=== PATIENT | female | born 1970 | race Caucasian/White ===

== ENCOUNTER 2021-05-04 18:42 | Outpatient (CLI) | payer OTHER ==
[2021-05-04 20:30] VITALS: BP 120/82
[2021-05-04] MEDS ORDERED: LORazepam 2 MG TABLET PO ONE (21:15)
[2021-05-04 22:09] VITALS: BP 120/82
[2021-05-04] MEDS: TraZODone HCL 150 MG TABLET PO SCH (22:47)
[2021-05-04] MEDS: TOPIRAMATE 100 MG TABLET PO SCH (22:50)
[2021-05-05 01:36] LABS: GLUCOMETER DEV NAME(LOC) POC.BV
[2021-05-05 08:22] VITALS: BP 96/66
[2021-05-05] MEDS: PREGABALIN 50 MG CAPSULE PO SCH ×5 (08:59→21:38)
[2021-05-05] MEDS: LORazepam 1 MG TABLET PO PRN ×2 (09:04→16:49)
[2021-05-05] MEDS: LEVOTHYROXINE SODIUM 100 MCG TABLET PO SCH (09:41)
[2021-05-05] MEDS: ARIPiprazole 15 MG TABLET PO SCH (09:41)
[2021-05-05] MEDS: TOPIRAMATE 100 MG TABLET PO SCH ×2 (09:42→21:49)
[2021-05-05 15:07] LABS: BASOPHILS % (AUTO) 0.2 % (0.0-2.0); EOSINOPHILS % (AUTO) 0.6 % (1.0-6.0); HEMATOCRIT 43.3 % (36-46); HEMOGLOBIN 14.8 g/dL (12.0-16.0); LYMPHOCYTES # (AUTO) 2.2 K/uL (1.0-4.8); LYMPHOCYTES % (AUTO) 32.2 % (22.0-44.0); MEAN CORPUSCULAR HEMOGLOBIN 33.4 pg (26.0-34.0); MEAN CORPUSCULAR HGB CONC 34.1 G/dL (31.0-37.0); MEAN CORPUSCULAR VOLUME 98 fL (80-100); MONOCYTES # (AUTO) 0.6 K/uL (0.1-1.0); MONOCYTES % (AUTO) 8.1 % (2.0-9.0); NEUTROPHILS # (AUTO) 4.1 K/uL (1.8-7.7); NEUTROPHILS % (AUTO) 58.9 % (40.0-70.0); PLATELET COUNT (AUTO) 323 K/uL (150-450); RED BLOOD CELL COUNT(AUTO) 4.42 MIL/uL (4.00-5.20); RED CELL DISTRIBUTION WIDTH 13.8 % (11.5-14.5)
[2021-05-05 15:26] LABS: ANION GAP 7 mmol/L (8-16); CALCIUM, TOTAL 9.1 mg/dL (8.8-10.5); CARBON DIOXIDE 26 mmol/L (22-29); CHLORIDE 104 mmol/L (98-107); CREATININE 0.83 mg/dL (0.60-1.30); GLOMERULAR FILTR. RATE CALC > 60 mL/min (>60); GLUCOSE,RANDOM 98 mg/dL (70-110); POTASSIUM 3.9 mmol/L (3.5-5.1); SODIUM SERUM 137 mmol/L (136-145); UREA NITROGEN, BLOOD 8 mg/dL (7-18)
[2021-05-05 15:41] LABS: ALANINE AMINOTRANSFERASE 30 U/L (12-78); ALKALINE PHOSPHATASE 78 U/L (46-116); ASPARTATE AMINOTRANSFERASE 21 U/L (15-37); BILIRUBIN,TOTAL 0.8 mg/dL (0.1-1.0); FREE T4 (FREE THYROXINE) 1.67 ng/dL (0.76-1.46); THYROID STIMULATING HORMONE 0.42 uIU/mL (0.36-3.74); TOTAL PROTEIN, SERUM 7.1 g/dL (6.4-8.2)
[2021-05-05 15:42] LABS: ACETAMINOPHEN < 2 mcg/mL (10-30)
[2021-05-05 17:04] LABS: SALICYLATE < 2.8 mg/dL (2.8-20.0)
[2021-05-05 17:32] LABS: AMPHET/METH SCREEN,URINE NEGATIVE (NEGATIVE); BARBITURATE SCREEN, URINE NEGATIVE (NEGATIVE); BENZODIAZEPINES SCREEN,URINE NEGATIVE (NEGATIVE); CANNABINOID SCREEN,URINE POSITIVE (NEGATIVE); COCAINE SCREEN,URINE NEGATIVE (NEGATIVE); METHADONE SCREEN, URINE NEGATIVE (NEGATIVE); OPIATE SCREEN,URINE NEGATIVE (NEGATIVE)
[2021-05-05 17:39] LABS: PHENCYCLIDINE SCREEN,URINE NEGATIVE (NEGATIVE)
[2021-05-05] MEDS: TraZODone HCL 150 MG TABLET PO SCH (21:38)
[2021-05-05 21:54] VITALS: BP 106/68
[2021-05-06 08:41] VITALS: BP 98/66
[2021-05-06] MEDS: ARIPiprazole 15 MG TABLET PO SCH (09:01)
[2021-05-06] MEDS: LEVOTHYROXINE SODIUM 100 MCG TABLET PO SCH (09:01)
[2021-05-06] MEDS: PREGABALIN 50 MG CAPSULE PO SCH ×3 (09:02→17:00)
[2021-05-06] MEDS: TOPIRAMATE 100 MG TABLET PO SCH (09:02)
[2021-05-06] MEDS: LORazepam 1 MG TABLET PO PRN (09:10)
[2021-05-07] MEDS ORDERED: TRAZ-257 PO (02:18)
[2021-05-07] MEDS ORDERED: PREG50 PO (02:18)
[2021-05-07] MEDS ORDERED: LEVO100 PO (02:18)
[2021-05-07] MEDS ORDERED: TOPI100T37 PO ×2 (02:18)
[2021-05-07] MEDS ORDERED: ARIP15TA27 PO (02:18)
[2021-05-07] MEDS ORDERED: LEVO1TAB13 PO (02:18)
[2021-05-07] MEDS ORDERED: ativan PO (03:26)
[2021-05-08] MEDS ORDERED: LORA-1000 PO (12:31)
== END 2021-05-07 01:58 | disposition home or self-care (01) ==
LOC: CSU 18:42
PROVIDERS: ATTEND Psychiatry & Neurology Psychiatry
DX: F31.5 Bipolar disorder, current episode depressed, severe, with psychotic features (principal); F15.20 Other stimulant dependence, uncomplicated; F12.10 Cannabis abuse, uncomplicated; F31.4 Bipolar disorder, current episode depressed, severe, without psychotic features; F31.9 Bipolar disorder, unspecified
CPT/HCPCS: 36415; 80053; 80307; 84439; 84443; 85025; 87426; 90792; G0480 ×2; G0481

== ENCOUNTER 2021-05-06 00:29 | Inpatient (IN) | payer OTHER ==
[~2021-05-06] VITALS: Ht 175.3 cm; Wt 89.4 kg
[2021-05-07] MEDS ORDERED: PREG50 PO (02:18)
[2021-05-07] MEDS ORDERED: TOPI100T37 PO ×2 (02:18)
[2021-05-07] MEDS ORDERED: LEVO100 PO (02:18)
[2021-05-07] MEDS ORDERED: TRAZ-257 PO (02:18)
[2021-05-07] MEDS ORDERED: ARIP15TA27 PO (02:18)
[2021-05-07] MEDS ORDERED: LEVO1TAB13 PO (02:18)
[2021-05-07] MEDS ORDERED: ativan PO (03:26)
[2021-05-07] MEDS: HALOPERIDOL 5 MG TABLET PO PRN ×2 (03:54→08:48)
[2021-05-07] MEDS: LORazepam 1 MG TABLET PO PRN ×2 (03:54→08:32)
[2021-05-07 04:24] VITALS: BP 118/70
[2021-05-07] MEDS ORDERED: INFLUENZA VIRUS VACCINE QVS 2021-22 (6MO+)/PF 60 MCG/0.5 ML SYRINGE IM. ONE (04:45)
[2021-05-07 08:27] VITALS: BP 104/73
[2021-05-07] MEDS: TOPIRAMATE 100 MG TABLET PO SCH ×2 (12:04→20:17)
[2021-05-07] MEDS: ARIPiprazole 10 MG TABLET PO SCH (12:04)
[2021-05-07] MEDS ORDERED: NICOTINE 14 MG/24 HOUR PATCH TD PRN (15:15)
[2021-05-07] MEDS ORDERED: GuaiFENesin/D-METHORPHAN [SUGAR-FREE] 200-20MG/10 ML SYRUP UDCUP PO PRN (15:15)
[2021-05-07] MEDS ORDERED: MAG HYDROX/AL HYDROX/SIMETH ES 30 ML SUSPENSION UDCUP PO PRN (15:15)
[2021-05-07] MEDS ORDERED: CloNIDine HCL 0.1 MG TABLET PO PRN (15:15)
[2021-05-07] MEDS ORDERED: ALBUTEROL SULFATE HFA 90 MCG/PUFF 8 GM INHALER IH PRN (15:15)
[2021-05-07] MEDS ORDERED: DOCUSATE SODIUM 100 MG CAPSULE PO PRN (15:15)
[2021-05-07] MEDS ORDERED: ONDANSETRON HCL 4 MG TABLET PO PRN (15:15)
[2021-05-07] MEDS ORDERED: ACETAMINOPHEN 325 MG TABLET PO PRN (15:15)
[2021-05-07] MEDS ORDERED: MAGNESIUM HYDROXIDE SUSPENSION 30 ML UDCUP PO PRN (15:15)
[2021-05-07] MEDS ORDERED: LOPERAMIDE HCL 2 MG CAPSULE PO PRN (15:15)
[2021-05-07] MEDS ORDERED: PETROLATUM,WHITE 28 GM JELLY TP PRN (15:15)
[2021-05-07 15:41] LABS: GLUCOMETER DEV NAME(LOC) POC.BV
[2021-05-07 16:14] VITALS: BP 96/58
[2021-05-07 17:11] VITALS: BP 106/68
[2021-05-07] MEDS: IBUPROFEN 400 MG TABLET PO PRN (17:11)
[2021-05-07] MEDS: TraZODone HCL 100 MG TABLET PO SCH (20:17)
[2021-05-07] MEDS ORDERED: TOPIRAMATE 100 MG TABLET PO SCH (21:00)
[2021-05-07] MEDS ORDERED: GABAPENTIN 300 MG CAPSULE PO SCH (21:00)
[2021-05-08 02:08] VITALS: BP 110/68
[2021-05-08] MEDS: ZOLPIDEM TARTRATE 10 MG TABLET PO PRN ×2 (02:10→20:09)
[2021-05-08 05:03] VITALS: BP 132/91
[2021-05-08] MEDS: LORazepam 1 MG TABLET PO PRN ×2 (05:07→17:14)
[2021-05-08] MEDS: IBUPROFEN 400 MG TABLET PO PRN (05:08)
[2021-05-08] MEDS: HALOPERIDOL 5 MG TABLET PO PRN (05:08)
[2021-05-08] MEDS: LEVOTHYROXINE SODIUM 100 MCG TABLET PO SCH (06:25)
[2021-05-08 06:36] LABS: BASOPHILS % (AUTO) 0.3 % (0.0-2.0); EOSINOPHILS % (AUTO) 1.4 % (1.0-6.0); HEMATOCRIT 42.8 % (36-46); HEMOGLOBIN 14.8 g/dL (12.0-16.0); LYMPHOCYTES # (AUTO) 2.5 K/uL (1.0-4.8); LYMPHOCYTES % (AUTO) 33.8 % (22.0-44.0); MEAN CORPUSCULAR HEMOGLOBIN 33.8 pg (26.0-34.0); MEAN CORPUSCULAR HGB CONC 34.6 G/dL (31.0-37.0); MEAN CORPUSCULAR VOLUME 98 fL (80-100); MONOCYTES # (AUTO) 0.6 K/uL (0.1-1.0); MONOCYTES % (AUTO) 8.1 % (2.0-9.0); NEUTROPHILS # (AUTO) 4.3 K/uL (1.8-7.7); NEUTROPHILS % (AUTO) 56.4 % (40.0-70.0); PLATELET COUNT (AUTO) 303 K/uL (150-450); RED BLOOD CELL COUNT(AUTO) 4.38 MIL/uL (4.00-5.20); RED CELL DISTRIBUTION WIDTH 13.3 % (11.5-14.5)
[2021-05-08 07:01] LABS: ALANINE AMINOTRANSFERASE 28 U/L (12-78); ALKALINE PHOSPHATASE 79 U/L (46-116); ANION GAP 8 mmol/L (8-16); ASPARTATE AMINOTRANSFERASE 17 U/L (15-37); BILIRUBIN,TOTAL 0.7 mg/dL (0.1-1.0); CALCIUM, TOTAL 9.3 mg/dL (8.8-10.5); CARBON DIOXIDE 25 mmol/L (22-29); CHLORIDE 106 mmol/L (98-107); CHOL/HDL RATIO 4.6 (3.9-5.7); CHOLESTEROL 236 mg/dL (131-200); CREATININE 0.93 mg/dL (0.60-1.30); FREE T4 (FREE THYROXINE) 1.35 ng/dL (0.76-1.46); GLOMERULAR FILTR. RATE CALC > 60 mL/min (>60); GLUCOSE,RANDOM 101 mg/dL (70-110); HCG,QUANTITATIVE 1 mIU/mL (0-6); HDL CHOLESTEROL 51 mg/dL (40-60); LDL CHOL (CALC.) 166 mg/dL (0-130); POTASSIUM 3.8 mmol/L (3.5-5.1); SODIUM SERUM 139 mmol/L (136-145); THYROID STIMULATING HORMONE 0.42 uIU/mL (0.36-3.74); TOTAL PROTEIN, SERUM 7.6 g/dL (6.4-8.2); TRIGLYCERIDES 97 mg/dL (15-150); UREA NITROGEN, BLOOD 9 mg/dL (7-18)
[2021-05-08 08:35] VITALS: BP 104/62
[2021-05-08] MEDS: PREGABALIN 50 MG CAPSULE PO SCH ×3 (08:47→16:01)
[2021-05-08] MEDS: TOPIRAMATE 100 MG TABLET PO SCH ×2 (08:47→20:05)
[2021-05-08] MEDS ORDERED: TOPIRAMATE 100 MG TABLET PO SCH (09:00)
[2021-05-08] MEDS: ARIPiprazole 10 MG TABLET PO SCH (09:36)
[2021-05-08] MEDS: MEGESTROL ACETATE 400 MG/10 ML SUSPENSION UDCUP PO SCH (12:30)
[2021-05-08] MEDS ORDERED: LORA-1000 PO (12:31)
[2021-05-08] MEDS: DULoxetine HCL 20 MG CAPSULE PO SCH (13:49)
[2021-05-08 16:08] VITALS: BP 103/62
[2021-05-08] MEDS: TraZODone HCL 100 MG TABLET PO SCH (20:04)
[2021-05-09 03:45] VITALS: BP 101/67
[2021-05-09] MEDS: LORazepam 1 MG TABLET PO PRN ×2 (04:32→12:45)
[2021-05-09] MEDS: HALOPERIDOL 5 MG TABLET PO PRN (04:32)
[2021-05-09] MEDS: LEVOTHYROXINE SODIUM 100 MCG TABLET PO SCH (06:45)
[2021-05-09 08:14] VITALS: BP 110/63
[2021-05-09] MEDS: PREGABALIN 50 MG CAPSULE PO SCH ×3 (08:20→16:56)
[2021-05-09] MEDS: TOPIRAMATE 100 MG TABLET PO SCH ×2 (08:20→20:31)
[2021-05-09] MEDS: ARIPiprazole 10 MG TABLET PO SCH (08:20)
[2021-05-09] MEDS: DULoxetine HCL 20 MG CAPSULE PO SCH (08:20)
[2021-05-09] MEDS: MEGESTROL ACETATE 400 MG/10 ML SUSPENSION UDCUP PO SCH (09:00)
[2021-05-09 10:51] LABS: APPEARANCE,URINE CLEAR (CLEAR); BILIRUBIN,URINE NEGATIVE (NEGATIVE); GLUCOSE, URINE (UA) NEGATIVE (NEGATIVE); KETONES,URINE 15 mg/dL (NEGATIVE); LEUKOCYTE ESTERASE ,URINE NEGATIVE (NEGATIVE); NITRATE,URINE NEGATIVE (NEGATIVE); OCCULT BLOOD,URINE NEGATIVE (NEGATIVE); PROTEIN,URINE NEGATIVE (NEGATIVE)
[2021-05-09 10:57] LABS: AMPHET/METH SCREEN,URINE NEGATIVE (NEGATIVE); BARBITURATE SCREEN, URINE NEGATIVE (NEGATIVE); BENZODIAZEPINES SCREEN,URINE NEGATIVE (NEGATIVE); CANNABINOID SCREEN,URINE POSITIVE (NEGATIVE); COCAINE SCREEN,URINE NEGATIVE (NEGATIVE); METHADONE SCREEN, URINE NEGATIVE (NEGATIVE); OPIATE SCREEN,URINE NEGATIVE (NEGATIVE)
[2021-05-09 11:00] LABS: PHENCYCLIDINE SCREEN,URINE NEGATIVE (NEGATIVE)
[2021-05-09 16:26] VITALS: BP 128/70
[2021-05-09] MEDS ORDERED: TraZODone HCL 100 MG TABLET PO SCH (21:00)
[2021-05-10 00:45] VITALS: BP 114/78
[2021-05-10] MEDS: LEVOTHYROXINE SODIUM 100 MCG TABLET PO SCH (06:08)
[2021-05-10] MEDS: ARIPiprazole 10 MG TABLET PO SCH (08:17)
[2021-05-10] MEDS: LORazepam 1 MG TABLET PO PRN (08:18)
[2021-05-10] MEDS: PREGABALIN 50 MG CAPSULE PO SCH ×2 (08:18→12:07)
[2021-05-10] MEDS: DULoxetine HCL 20 MG CAPSULE PO SCH (08:18)
[2021-05-10] MEDS: MEGESTROL ACETATE 400 MG/10 ML SUSPENSION UDCUP PO SCH (08:19)
[2021-05-10] MEDS: TOPIRAMATE 100 MG TABLET PO SCH (08:19)
[2021-05-10 09:35] VITALS: BP 107/72
[2021-05-10] MEDS ORDERED: TRAZ150T80 PO (11:13)
[2021-05-10] MEDS ORDERED: DULO20CA27 PO (11:13)
[2021-05-10] MEDS ORDERED: TOPI100T37 PO (11:13)
[2021-05-10] MEDS ORDERED: ARIP10TA38 PO (11:13)
[2021-05-10] MEDS ORDERED: MEGE40TA8 PO (11:16)
[2021-05-10 13:00] LABS: GLUCOMETER DEV NAME(LOC) POC.BV
[2021-05-10 16:03] VITALS: BP 108/68
== END 2021-05-10 16:14 | disposition home or self-care (01) | DRG 885 ==
LOC: B3A 05-07 00:42
PROVIDERS: ADMIT Psychiatry & Neurology Child & Adolescent Psychiatry; ATTEND Psychiatry & Neurology Child & Adolescent Psychiatry
DX: F31.4 Bipolar disorder, current episode depressed, severe, without psychotic features (principal); R45.851 Suicidal ideations; E03.9 Hypothyroidism, unspecified; F10.10 Alcohol abuse, uncomplicated; Z20.822 Contact with and (suspected) exposure to COVID-19; F41.9 Anxiety disorder, unspecified; G43.909 Migraine, unspecified, not intractable, without status migrainosus; G89.29 Other chronic pain; F19.10 Other psychoactive substance abuse, uncomplicated; M54.9 Dorsalgia, unspecified; R63.0 Anorexia; Z91.19 Patient's noncompliance with other medical treatment and regimen; Z68.29 Body mass index [BMI] 29.0-29.9, adult; Z28.21 Immunization not carried out because of patient refusal; Z79.899 Other long term (current) drug therapy
CPT/HCPCS: 80053; 80061; 80307; 81003; 83036; 84436; 84439; 84443; 84702; 85025